=== PATIENT | male | born 1950 | race Caucasian/White ===

== ENCOUNTER → 2018-10-15 | Outpatient (CLI) | payer MEDICARE ==
[2018-10-15 10:33] LABS: Basophils # (auto) 0.1 uL; Basophils % (auto) 1.1 % (0.0-2.0); Eosinophils # (auto) 0.5 uL; Eosinophils % (auto) 8.6 % (0.0-7.0); Hematocrit 30.5 % (41.0-53.0); Hemoglobin 10.2 g/dL (13.5-17.5); Lymphocytes # (auto) 0.8 uL; Lymphocytes % (auto) 13.7 % (10.0-50.0); Mean Corpuscular Hemoglobin 29.6 pg (28.0-32.0); Mean Corpuscular Hgb Conc. 33.4 g/dL (32.0-36.0); Mean Corpuscular Volume 88.5 fL (80.0-100.0); Monocytes # (auto) 0.8 uL; Monocytes % (auto) 14.3 % (0.0-12.0); Neutrophils # (auto) 3.7 uL; Neutrophils % (auto) 62.3 % (37.0-80.0); Nucleated Red Blood Cells % 0.1 %; Platelet Count (auto) 123 10^3/uL (140-450); Red Blood Cells 3.45 10^6/uL (4.5-5.90); Red Cell Distribution Width 18.3 % (11.8-14.3); White Blood Cell 5.9 10^3/uL (4.4-10.8)
[2018-10-15 10:49] LABS: INR 1.27 (0.9-1.15); Prothrombin Time 13.4 sec (9.27-12.13)
== END | disposition home or self-care (01) ==
LOC: US 09:48
DX: R18.8 Other ascites (principal)
CPT/HCPCS: 36415; 49083; 76700; 85025; 85610; C1729; 10022; 76942

== ENCOUNTER → 2018-10-22 | Outpatient (CLI) | payer MEDICARE | END | disposition home or self-care (01) | LOC: US 09:47 | DX: R18.8 Other ascites (principal) | CPT/HCPCS: 49083; 76700; C1729; 10022; 76942 ==

== ENCOUNTER → 2018-11-13 | Outpatient (CLI) | payer MEDICARE ==
[2018-11-13 09:50] LABS: Basophils # (auto) 0 uL; Basophils % (auto) 0.8 % (0.0-2.0); Eosinophils # (auto) 0.5 uL; Eosinophils % (auto) 8.1 % (0.0-7.0); Hematocrit 30.1 % (41.0-53.0); Hemoglobin 9.5 g/dL (13.5-17.5); Lymphocytes % (auto) 15.6 % (10.0-50.0); Mean Corpuscular Hemoglobin 28.3 pg (28.0-32.0); Mean Corpuscular Hgb Conc. 31.6 g/dL (32.0-36.0); Mean Corpuscular Volume 89.6 fL (80.0-100.0); Monocytes % (auto) 16.4 % (0.0-12.0); Neutrophils # (auto) 3.7 uL; Neutrophils % (auto) 59.1 % (37.0-80.0); Platelet Count (auto) 127 10^3/uL (140-450); Red Blood Cells 3.36 10^6/uL (4.5-5.90); Red Cell Distribution Width 19.5 % (11.8-14.3); White Blood Cell 6.2 10^3/uL (4.4-10.8)
[2018-11-13 10:01] LABS: INR 1.18 (0.9-1.15); Prothrombin Time 12.5 sec (9.27-12.13)
--- NOTE | 2018-11-13 10:40 | NUR ---
PT IN ULTRASOUND FOR A PARACENTESIS. LABS GOOD. VSS. 126/67-71-16-99%. 1100: 125/67-61-16-98%. 1115: 122/68-65-17-99%.1130:116/66-73-17-98%
--- NOTE | 2018-11-13 11:45 | NUR ---
VS REMAIN STABLE. 129/75-67-17-98%. 1200: 112/65-68-16-99%. 12,800 ML OF FLUID OFF SO FAR. DR AMIN INFORMED. STATES KEEP DRAINING FLUID IF PT TOLERATING. 1210: 103/52-72-16-98%. PT DENIES ANY COMPLAINTS. 14,[address] AMIN INFORMED AND STATES KEEP DRAINING FLUID LONG PT TOLERATES OF FLUID GONE. 1220: FLUID FINISHED DRAINING. TOTAL OF 15,200 OFF. PT A/A/O. DENIES C/O. VSS 112/60-70-16-99%. PT GIVEN ORANGE JUICE AND OBSERVED SITTING IN CHAIR X 25 MINUTES BEFORE RELEASING HOME IN GOOD CONDITION. ESCORTED OUT IN W/C. WITH AT SIDE.
== END | disposition home or self-care (01) ==
LOC: US 09:20
DX: K70.31 Alcoholic cirrhosis of liver with ascites (principal)
CPT/HCPCS: 36415; 49083; 76705; 85025; 85610; C1729; 10022; 76942

== ENCOUNTER → 2018-11-19 | Outpatient (CLI) | payer MEDICARE ==
--- NOTE | 2018-11-19 11:20 | NUR ---
PT IN ULTRASOUND FOR A PARACENTESIS BY DR AMIN. . 1135: VS 120/66-66-16-98%. 1150: 129/67-67-16-99%. 1205: 119/48-69-16-97%. 1225:118/53-68-17-99%. 1240: 100/14-43-05-16-99%. 10,150 STRAW COLORED FLUID REMOVED. PT STATES HE WANTS TO SIT IN WAITING ROOM FOR A WHILE AND EAT A SANDWICH BEFORE HE GOES HOME SINCE HE IS DRIVING HIMSELF AND STATES HE FEELS A LITTLE WEAK. PLACED IN WAITING ROOM FOR OBSERVATION. AT SIDE. SANDWICH AND OJ GIVEN. 1300: 110/60-62-18-96%. 1315: 100/59-68-27-97%. STATES NOT FEELING WELL. C/O LOWER ABD PAIN. 8/10. CRAMPING TYPE. DR AMIN MADE AWARE. WILL CONTINUE TO MONITOR. PT ADVISED TO BE SEEN IN THE ER BUT IS REFUSING AT THIS TIME. 1330: 106/56-69-17-97%. CALLING A FRIEND TO COME PICK HER UP SINCE SHE DOES NOT DRIVE. STATES SHE IS GOING TO GET PATIENTS PAIN PILLS AND BRING THEM TO HIM. ADVISED HIM NOT TO DRIVE TODAY. 1400: STILL IN WAITING ROOM. STATES FEELING A LITTLE BETTER. VS REMAIN STABLE. 101/62-69-16-98%.
--- NOTE | 2018-11-19 14:29 | NUR ---
STATES FEELING A LITTLE BETTER. WANTS TO GO HOME. VSS 110/66-69-17-98%. RELEASED TO [facility] AT THIS TIME. DR AMIN AWARE.
== END | disposition home or self-care (01) ==
LOC: US 11:01
DX: K70.31 Alcoholic cirrhosis of liver with ascites (principal)
CPT/HCPCS: 49083; 76942

== ENCOUNTER 2019-09-12 21:40 | Emergency (ER) | payer MEDICARE ==
[~2019-09-12] VITALS: Ht 177.8 cm; Wt 50.3 kg
[2019-09-12 21:45] VITALS: BP 0/0
== END 2019-09-12 21:45 | disposition expired ==
LOC: EDBD 21:40 → ER 21:42
DX: I46.9 Cardiac arrest, cause unspecified (principal)
CPT/HCPCS: 92950; A4565